=== PATIENT | male | born 1960 | race Caucasian/White ===

== ENCOUNTER 2017-09-18 23:28 | Emergency (ER) | payer OTHER, BC ==
[~2017-09-18] VITALS: Ht 188 cm; Wt 140.6 kg
[2017-09-18] MEDS ORDERED: CROMOLYN S20 MG/1 ML PO (23:42)
[2017-09-18] MEDS ORDERED: MOBIC15 MG PO (23:42)
[2017-09-18] MEDS ORDERED: NEXIUM40 MG PO (23:42)
[2017-09-18] MEDS ORDERED: LASIX 20 MG TAB20 MG PO (23:42)
[2017-09-18] MEDS ORDERED: AMLODIPINE BESY10 MG PO (23:42)
[2017-09-18] MEDS ORDERED: ASPIR 8181 MG PO (23:42)
[2017-09-18] MEDS ORDERED: POTASSIUM99 M1 PO (23:43)
[2017-09-18] MEDS ORDERED: MELATONIN5 M1 PO (23:43)
[2017-09-18] MEDS ORDERED: CHEST CONGESTI400 MG PO (23:43)
[2017-09-18] MEDS ORDERED: VITAMIN D3400 UNIT PO (23:43)
[2017-09-19] MEDS ORDERED: NORCO 5-325 TA1 EAC1 PO (00:34)
[2017-09-19 00:44] VITALS: BP 134/65
== END 2017-09-19 01:07 | disposition home or self-care (01) ==
LOC: M.ERS 23:28
DX: M77.41 Metatarsalgia, right foot (principal); M19.90 Unspecified osteoarthritis, unspecified site; Z88.0 Allergy status to penicillin